=== PATIENT | male | born 1970 | race Caucasian/White ===

== ENCOUNTER 2017-06-14 11:56 | Inpatient (IN) | payer BC, OTHER ==
[2017-06-14 12:58] LABS: #Basophils 0.1 thou/uL (0.0-0.2); #Lymphocytes 0.6 thou/uL (1.20-3.40); #Monocytes 0.3 thou/uL (0.11-0.59); #Neutrophils 11.9 thou/uL (1.40-6.50); %Basophils 0.5 % (0.0-1.0); %Eosinophils 0.3 % (0.0-10.0); %Lymphocytes 4.8 % (21.0-51.0); %Monocytes 2.4 % (0.0-10.0); Hemoglobin 16.6 g/dL (14.0-18.0); Mean Corpuscular HGB CONC 32.9 g/dL (32.0-36.0); Mean Corpuscular Hemoglobin 31.4 pg (27.0-31.0); Mean Corpuscular Volume 95.5 fl (80.0-94.0); Platelet Count 283 thou/uL (130-400); RBC Distribution Width 12.4 % (11.5-14.5); Red Blood Cell (RBC) Count 5.29 mill/uL (4.70-6.10); White Blood Cell (WBC) Count 12.9 thou/uL (4.8-10.8)
[2017-06-14 13:02] LABS: Bilirubin Negative (Negative); Blood, Urine Negative (Negative); Clarity CLEAR (Clear); Glucose, Urine (Dipstick) Negative (Negative); Leukocyte Negative (Negative); Nitrite Negative (Negative); Protein, Urine (Dipstick) Trace mg/dL (Neg-Trace); Specific Gravity, Urine 1.024 (1.002-1.036); Urobilinogen 0.2 mg/dL (0.2-1.0); pH, Urine 6.5 (5.0-9.0)
[2017-06-14] MEDS ORDERED: Morphine 4 MG/ML VIAL ONE (13:20)
[2017-06-14 13:22] LABS: ALT (SGPT) 43 U/L (8-55); AST (SGOT) 31 U/L (5-34); Albumin 4.8 g/dL (3.5-5.0); Alkaline Phosphatase 108 U/L (40-150); Anion Gap 16 mmol/L (10-20); BUN (Urea Nitrogen) 13 mg/dL (8.9-20.6); Bilirubin, Total 1.2 mg/dL (0.2-1.2); Calc. Creatinine Clearance 0 mL/min (70-130); Calcium 9.8 mg/dL (7.8-10.44); Carbon Dioxide 24 mmol/L (22-29); Chloride 102 mmol/L (98-107); Estimated GFR-MDRD 87; Globulin 3.7 g/dL (2.4-3.5); Glucose 131 mg/dL (70-105); Lipase 18 U/L (8-78); Potassium 4.8 mmol/L (3.5-5.1); Protein, Total 8.5 g/dL (6.0-8.3); Sodium 137 mmol/L (136-145)
[2017-06-14 13:27] LABS: Troponin I Less than 0.010 ng/mL (< 0.028)
--- NOTE | 2017-06-14 15:12 | RAD ---
CHEST 2 VIEWS: HISTORY: Epigastric abdominal pain. COMPARISON: None. FINDINGS: The lungs are clear. There are mild linear markings in the left lung base. No pneumothorax. No lar ge effusion. IMPRESSION: Linear markings left lung base, likely focal atelectasis. Followup can be obtained. POS: MARTIN
[2017-06-14] MEDS ORDERED: Morphine 4 MG/ML VIAL SLOW IVP SCH (15:45)
[2017-06-14] MEDS ORDERED: Piperacillin/Tazobactam 4.5 GM in Sodium Chloride 0.9% 100 ML IVPB SCH (15:45)
[2017-06-14] MEDS ORDERED: Sodium Chloride 0.9% 1,000 ML IV SCH ×2 (15:45→17:31)
--- NOTE | 2017-06-14 16:15 | ULT ---
GALLBLADDER ULTRASOUND: INDICATION: Right upper quadrant and epigastric pain. FINDINGS: There is mild prominence of the hepatic volume with increased echogenicity. Increased echogenicity o f the lumen is located at the gallbladder neck reported as immobile by the computer information science professor. Gallbladder wall is borderline approximately 3 mm in thickness. Chun's sign report is negative by the sonograp her, although the patient was administered morphine prior to the imaging exam. The common duct is no rmal where visualized. Incidental note of decreased echogenicity within the right kidney indicating cyst formation. IMPRESSION: 1. Cholelithiasis. There is associated mild gallbladder distention with borderline gallbladder wall . Recommend clinical correlation to exclude evidence of developing cholecystitis. 2. Probable hepatic steatosis which may be further assessed with dedicated hepatic enzymes. 3. Incidental right renal cyst. POS: MARTIN
[2017-06-14 17:11] LABS: Lactic Acid 2.5 mmol/L (0.5-2.2)
[2017-06-14] MEDS ORDERED: Morphine 4 MG/ML VIAL SLOW IVP PRN ×2 (17:30→17:31)
[2017-06-14] MEDS ORDERED: Acetaminophen 1,000 MG in Premix Bag 1 BAG IVPB PRN (17:31)
[2017-06-14] MEDS ORDERED: Ondansetron HCl/PF 4 MG/2 ML Vial IVP PRN (17:31)
[2017-06-14] MEDS ORDERED: Ondansetron ODT 4 MG TAB SL PRN (17:31)
[2017-06-14 17:48] VITALS: BMI 31.5
--- NOTE | 2017-06-14 18:57 | HP ---
CHIEF COMPLAINT: Upper abdominal pain. HISTORY OF PRESENT ILLNESS: This is a 47-year-old male who presents with a history of cholecystitis; acute onset of upper abdominal pain after lunch, sharp, 8/10, right upper quadrant, radiates around to his right back. He has never had this pain before. Denies history of chronic abdominal pain. De nies history of previous known gallstones, jaundice, or pancreatitis. Ultrasound reveals cholelithia sis, mildly thickened gallbladder wall. His pain is improved, but not gone. He is admitted to [facility] for cholecystitis. PAST MEDICAL HISTORY: He denies. PAST SURGICAL HISTORY: Denies. MEDICINES TAKEN DAILY: None. ALLERGIES: No known drug allergies. SOCIAL HISTORY: No smoking, alcohol or other drugs. REVIEW OF SYSTEMS: Ten-system review of systems otherwise negative unless described above. PHYSICAL EXAMINATION: HEENT: Sclerae are anicteric. Oropharynx is clear. NECK: No lymphadenopathy. CHEST: Clear. HEART: Regular rate and rhythm. ABDOMEN: Soft, tender in the right upper quadrant with localized guarding, no rebound, no abdominal or inguinal hernias. EXTREMITIES: No ischemia or edema to extremities. LABORATORY DATA: White blood cell count is 12, hemoglobin is 16, platelet count is 283. Creatinine 0.93. Liver function tests normal. Lipase normal. Ultrasound, gallstones, mildly thickened gallbla dder wall, normal common bile duct. ASSESSMENT: Acute cholecystitis. PLAN: Laparoscopic cholecystectomy tomorrow. Risks, benefits, alternatives discussed. He gives con sent.
[2017-06-15] MEDS ORDERED: Fentanyl 100 MCG/2 ML VIAL ONE ×2 (07:38→11:12)
[2017-06-15] MEDS ORDERED: Bupivacaine/Epinephrine 0.25% 30 ML VIAL ONE (09:33)
[2017-06-15] MEDS ORDERED: Promethazine HCl 25 MG/ML VIAL SLOW IVP PRN (10:27)
[2017-06-15] MEDS ORDERED: Ondansetron HCl/PF 4 MG/2 ML Vial IVP PRN ×2 (10:27→11:31)
[2017-06-15] MEDS ORDERED: Meperidine HCl/PF 25 MG/ML VIAL SLOW IVP PRN (10:27)
[2017-06-15] MEDS ORDERED: HYDROmorphone 2 MG/ML VIAL SLOW IVP PRN (10:27)
[2017-06-15] MEDS ORDERED: Morphine Sulfate 2 MG/ML SYRINGE SLOW IVP PRN (10:27)
[2017-06-15] MEDS ORDERED: Promethazine HCl 25 MG/ML VIAL IM PRN ×2 (10:27→11:31)
[2017-06-15] MEDS ORDERED: D5 1/2 NS w/20 mEq KCL 1,000 ML IV SCH (11:31)
[2017-06-15] MEDS ORDERED: hydrALAZINE 20 MG/ML VIAL SLOW IVP PRN (11:31)
[2017-06-15] MEDS ORDERED: Morphine 4 MG/ML VIAL SLOW IVP PRN ×2 (11:31)
--- NOTE | 2017-06-15 11:33 | OP ---
DATE OF PROCEDURE: 06/15/2017 PREOPERATIVE DIAGNOSES: Acute cholecystitis. POSTOPERATIVE DIAGNOSIS: Acute cholecystitis. PROCEDURE PERFORMED: Laparoscopic cholecystectomy. SURGEON: Dr. Kessler. ANESTHESIA: General. ESTIMATED BLOOD LOSS: Minimal. COMPLICATIONS: None. SPECIMEN: Gallbladder. FINDINGS: Cholecystitis. PROCEDURE IN DETAIL: The patient was taken to the Operating Room and laid supine on the Operating Ro om table. After general anesthetic was obtained, the abdomen was prepped and draped in a sterile fas hion. A curved incision was made below the umbilicus. Cautery was used to dissect down to the umbil ical fascia. Umbilical fascia was incised and held up using a Anna. The abdominal cavity was enter ed using a Krys clamp. Holding stitch of Vicryl was placed on each side of the fascia. Gaming troc ar was placed. High-flow pneumoperitoneum was obtained. An upper midline 5-mm port and two right upp er quadrant 5-mm ports were placed under direct camera visualization. The gallbladder was retracted from the gallbladder fossa. The peritoneum of the gallbladder was opened anteriorly and posteriorly. The critical view triangle was seen showing only the cystic duct and cystic artery branching from m edial to lateral. There were no other branching structures. Two clips were placed proximally on the cystic duct and one laterally. It was cut using laparoscopic scissors. The cystic artery was taken in the same way. Electrocautery was then used to dissect the gallbladder out of the gallbladder fossa . The gallbladder was placed in an Endo catch bag and brought out through the Gaming. There was no b leeding or bile in the liver bed. The cystic duct stump and cystic artery stump were intact without evidence of extravasation or bleeding. All port sites were infiltrated using local anesthesia. All ports were removed under camera visualization. Pneumoperitoneum was let down. The Vicryl was used t o close the fascial defect below the umbilicus. All incisions were irrigated and closed using 4-0 Mo nocryl and DermaBond. The patient was en route to Recovery in stable condition. All instrument coun ts, needle counts and lap counts were correct.
[2017-06-15] MEDS ORDERED: Acetaminophen 1,000 MG in Premix Bag 1 BAG IVPB SCH (12:00)
[2017-06-15] MEDS ORDERED: Ondansetron HCl/PF 4 MG/2 ML Vial ONE (15:08)
[2017-06-15] MEDS ORDERED: Ketorolac Tromethamine 30 MG/ML VIAL ONE (15:08)
[2017-06-15] MEDS ORDERED: Lidocaine 1% PF 5 ML VIAL ONE (15:08)
[2017-06-15] MEDS ORDERED: PROVENTIL INHALER 6.7 G (200 INHALATIONS) ONE (15:08)
[2017-06-15] MEDS ORDERED: Propofol 200 MG/20 ML VIAL ONE (15:08)
[2017-06-15] MEDS ORDERED: Glycopyrrolate 0.2 MG/ML 5 ML SYRINGE ONE (15:08)
[2017-06-15 15:30] VITALS: TEMP 97.6
[2017-06-15 15:32] VITALS: BP 151/82
[2017-06-15] MEDS ORDERED: Famotidine 20 MG TAB PO SCH (21:00)
[2017-06-15] MEDS ORDERED: Famotidine/PF 20 mg/2ml Vial SLOW IVP SCH (21:00)
[2017-06-16] MEDS ORDERED: HYDROcodone/Acetaminophen 7.5/325 mg Tablet PO PRN ×2 (10:34)
== END 2017-06-15 14:29 | disposition home or self-care (01) | DRG 419 ==
LOC: ERS 11:56 → SJJU 17:10
PROVIDERS: ADMIT Surgery; ATTEND Surgery
PROC: 0FT44ZZ Resection of Gallbladder, Percutaneous Endoscopic Approach (ICD-10-PCS; principal; 2017-06-15)
DX: K80.12 Calculus of gallbladder with acute and chronic cholecystitis without obstruction (principal)
CPT/HCPCS: 36415; 71046; 76705; 80053; 81003; 83605; 83690; 84484; 85025; 86140; 88304; 93005; 96361; 96365; 96375; J0131; J1885; J2001; J2270; J2405; J2543; J2704; J3010; J7050